=== PATIENT | male | born 1935 | race Two or more races ===

== ENCOUNTER 2018-04-19 10:20 | Outpatient (CLI) | payer OTHER ==
[~2018-04-19 10:20] MED LIST: AVAPRO300 MG PO; CARdura 4MG TABLET PO; DOCUSATE SODIU100 MG PO; HYDRALAZINE HCL25 MG PO; HYDRODIURIL PO; LIPITOR20 MG PO; PLAVIX 75MG PO; Procardia Xl 30MG TAB PO
== END 2018-04-19 11:33 | disposition home or self-care (01) ==
LOC: NUCLEAR 10:20
DX: I63.9 Cerebral infarction, unspecified (principal); I10 Essential (primary) hypertension; E78.5 Hyperlipidemia, unspecified

== ENCOUNTER 2019-01-28 07:21 | Day surgery (SDC) | payer OTHER ==
[2019-01-28] MEDS ORDERED: PERCOCET 5-3251 EACH PO (13:00)
== END 2019-01-28 17:00 | disposition home or self-care (01) ==
LOC: CIR.AMB 07:21
DX: K40.31 Unilateral inguinal hernia, with obstruction, without gangrene, recurrent (principal)

== ENCOUNTER 2019-04-04 06:30 | Day surgery (SDC) | payer OTHER ==
[~2019-04-04 06:30] MED LIST changes: +PERCOCET 5-3251 EACH PO
[2019-04-05] MEDS ORDERED: ADALAT CC30 MG PO (08:01)
[2019-04-05] MEDS ORDERED: CARDURA XL4 MG PO (08:02)
== END 2019-04-05 13:00 | disposition home or self-care (01) ==
LOC: AMB-ENDOS 06:30 → O/R 10:06 → SURH 10:06 → AMB-ENDOS 10:06 → O/R 10:14 → SURH 10:14 → O/R 13:01 → SURH 13:01 → AMB-ENDOS 14:30 → O/R 04-05 16:52 → SURH 04-05 16:52
DX: K56.41 Fecal impaction (principal); K92.1 Melena; K62.1 Rectal polyp; K57.30 Diverticulosis of large intestine without perforation or abscess without bleeding; I69.354 Hemiplegia and hemiparesis following cerebral infarction affecting left non-dominant side

== ENCOUNTER 2020-07-06 12:15 | Inpatient (IN) | payer OTHER ==
[~2020-07-06] VITALS: Ht 180.3 cm; Wt 59.0 kg
[~2020-07-06 12:15] MED LIST changes: +ADALAT CC30 MG PO; +CARDURA XL4 MG PO
[2020-07-06] MEDS ORDERED: PLAVIX75 MG (12:31)
== END 2020-07-14 13:21 | DRG 57 ==
LOC: ER 12:15 → SEC-K 13:08 → SURG 13:08
PROVIDERS: Surgery; ADMIT Internal Medicine Cardiovascular Disease; ATTEND Internal Medicine Cardiovascular Disease
PROC: B020ZZZ Computerized Tomography (CT Scan) of Brain (ICD-10-PCS; 2020-07-06)
PROC: 0DH63UZ Insertion of Feeding Device into Stomach, Percutaneous Approach (ICD-10-PCS; principal; 2020-07-08 12:00)
PROC: 3E0G76Z Introduction of Nutritional Substance into Upper GI, Via Natural or Artificial Opening (ICD-10-PCS; 2020-07-09)
DX: I69.391 Dysphagia following cerebral infarction (principal); I69.354 Hemiplegia and hemiparesis following cerebral infarction affecting left non-dominant side; R13.12 Dysphagia, oropharyngeal phase; R53.81 Other malaise; I16.0 Hypertensive urgency; K59.00 Constipation, unspecified; I10 Essential (primary) hypertension